=== PATIENT | female | born 1950 | race Caucasian/White ===

== ENCOUNTER 2016-10-27 09:21 | Emergency (ER) | payer MEDICARE ==
[~2016-10-27 09:21] MED LIST: ACIPHEX20 MG PO; ALEVE220 M1 PO; BACTROBAN OINT.22 GM TP; INDERAL-DPS40 MG PO; KLONOPIN DPS0.5 MG PO; LIPITOR DPS10 MG PO; MONTELUKAST SOD10 MG PO; NEURONTIN DPS100 MG PO; OCEAN37.5 ML NS; PROAIR RESPICL90 MCG IH; SYNTHROID88 MCG PO; VIBRAMYCIN-DPS100 M2 PO; WELLBUTRIN XL150 MG PO; ZANAFLEX4 MG PO; ZYRTEC DPS10 MG PO; [UNRECOGNIZED DRUG - OTHER] PO
--- NOTE | 2016-11-19 21:30 | ER ---
ADMIT: 10/27/2016 RM/LOC: ER [facility] MR#: [id number] [address] [id number] WOODYMAGDIEL VALLESRANCHO Garcia [address] [place] [address] Emergency Room Report SEX: F AGE: 66 : 1950 DATE: 10/27/2016 This 66-year-old female feels as if she has a lash caught in the left eye in the bottom aspect area since yesterday, comes to the Emergency Department with continued irritation. See T-sheet for history and physical. There was fluorescein uptake and small abrasion in the left lower quadrant of the eye at approximately 5 o'clock. There is also some foreign black debris in the inner canthus that was removed. She was given a prescription for erythromycin ophthalmic appointment. Told to stop the gentamicin ophthalmic ointment and to follow up with her doctor tomorrow. DIAGNOSIS: Corneal abrasion. Jam Darby MD/ pamela JOB #: [id number] CC: Jam Darby MD, Attending Physician Amairani Tamayo MD, Family Physician
== END 2016-10-27 10:09 | disposition home or self-care (01) ==
LOC: ER 09:21
DX: S05.02XA Injury of conjunctiva and corneal abrasion without foreign body, left eye, initial encounter (principal); I10 Essential (primary) hypertension; Z88.0 Allergy status to penicillin; Z88.2 Allergy status to sulfonamides; Z88.8 Allergy status to other drugs, medicaments and biological substances; Z79.899 Other long term (current) drug therapy; W45.8XXA Other foreign body or object entering through skin, initial encounter